=== PATIENT | female | born 1955 | race Caucasian/White ===

== ENCOUNTER 2017-09-22 13:35 | Outpatient (CLI) | payer BC ==
[2017-09-22] MEDS ORDERED: ISOVUE-370 76%-LOCM 1 ML ONE (15:52)
== END 2017-09-22 13:36 | disposition home or self-care (01) ==
LOC: BICCT 13:35
PROVIDERS: ATTEND Internal Medicine Hematology & Oncology
DX: C50.919 Malignant neoplasm of unspecified site of unspecified female breast (principal); I25.10 Atherosclerotic heart disease of native coronary artery without angina pectoris; K21.9 Gastro-esophageal reflux disease without esophagitis
CPT/HCPCS: 71260; 74160

== ENCOUNTER 2017-10-24 09:51 | Outpatient (CLI) | payer BC | END 2017-10-24 09:52 | disposition home or self-care (01) | LOC: BICRAD 09:51 | PROVIDERS: ATTEND Family Medicine | DX: J18.9 Pneumonia, unspecified organism (principal); J98.4 Other disorders of lung | CPT/HCPCS: 71046 ==

== ENCOUNTER 2018-04-13 08:22 | Outpatient (CLI) | payer BC ==
--- NOTE | 2018-04-13 10:24 | BD ---
BONE DENSITOMETRY USING DEXA: HISTORY: Postmenopausal screening for osteoporosis. FINDINGS: Lumbar Spine: BMD (g/cm2) L1 0.832 T-Score: -1.4 Z-Score: 0.1 L2 1.151 T-Score: 1.1 Z-Score: 2.8 L3 1.031 T-Score: -0.5 Z-Score: 1.3 L4 0.993 T-Score: -0.6 Z-Score: 1.2 L1-L4 1.001 T-Score: -0.4 Z-Score: 1.3 Femoral Neck: 0.640 T-Score: -1.9 Z-Score:-0.4 Total Femur: 0.800 T-Score: -1.2 Z-Score: 0.0 There has been interval reduction of 1.7% in the BMD of the lumbar spine and a reduction of 5.9% of t he BMD of the proximal femur since 01/07/2017. The 10-year fracture risk for a major osteoporotic fracture is 9% and for a hip fracture is 1.2%. Impression: Osteopenia. POS: [facility]
== END 2018-04-13 08:23 | disposition home or self-care (01) ==
LOC: BICMAMMO 08:22
PROVIDERS: ATTEND Internal Medicine Hematology & Oncology
DX: C50.812 Malignant neoplasm of overlapping sites of left female breast (principal); M85.89 Other specified disorders of bone density and structure, multiple sites
CPT/HCPCS: 77080

== ENCOUNTER 2018-12-30 13:02 | Outpatient (CLI) | payer BC ==
--- NOTE | 2018-12-30 13:40 | ULT ---
ULTRASOUND OF THE LEFT CHEST WALL: 12/30/18 HISTORY: 63-year-old female with left mastectomy for breast cancer. Patient had redness in the left chest wall . FINDINGS/IMPRESSION: Sonographic evaluation of the left chest wall demonstrates no evidence of mass or fluid collections. There is no evidence of masses. POS: [facility]
== END 2018-12-30 13:03 | disposition home or self-care (01) ==
LOC: BICULT 13:02
PROVIDERS: ATTEND Internal Medicine Hematology & Oncology
DX: C50.812 Malignant neoplasm of overlapping sites of left female breast (principal)

== ENCOUNTER 2019-05-26 10:09 | Outpatient (CLI) | payer BC ==
--- NOTE | 2019-05-26 12:39 | BD ---
DEXA BONE DENSITY STUDY: HISTORY: Postmenopausal. LUMBAR SPINE BMD (g/cm2) T-SCORE L1 0.903 -0.8 L2 1.185 +1.4 L3 1.063 -0.2 L4 1.071 +-.1 TOTAL 1.054 +0.1 LEFT FEMORAL NECK 0.65 -1.7 TOTAL 0.860 -0.7 IMPRESSION: 1. Osteopenia of the left femoral neck. 2. Normal bone mineral density of the lumbar spine. 3. The ten year fracture risk for a major osteoporotic fracture is 8.6% and for a hip fracture is 1.1 %. These fracture probabilities are calculated for an untreated patient. POS: [facility]
== END 2019-05-26 10:10 | disposition home or self-care (01) ==
LOC: BICMAMMO 10:09
PROVIDERS: ATTEND Internal Medicine Hematology & Oncology
DX: M85.88 Other specified disorders of bone density and structure, other site (principal); C50.919 Malignant neoplasm of unspecified site of unspecified female breast; N95.9 Unspecified menopausal and perimenopausal disorder
CPT/HCPCS: 77080

== ENCOUNTER 2019-09-02 11:09 | Outpatient (CLI) | payer BC ==
--- NOTE | 2019-09-02 13:21 | ULT ---
LEFT BREAST ULTRASOUND: HISTORY: Burning in the left chest wall. The patient has had a mastectomy on the left. COMPARISON: 12/30/2018. TECHNIQUE: Multiplanar, aguilera scale, and color Doppler images were obtained in a left chest wall ultrasound. FINDINGS: Normal-appearing fatty tissue is seen. No breast parenchyma is seen. No solid mass or cyst is seen. IMPRESSION: BIRADS category 1 - negative.
== END 2019-09-02 11:10 | disposition home or self-care (01) ==
LOC: BICULT 11:09
PROVIDERS: ATTEND Internal Medicine Hematology & Oncology
DX: C50.919 Malignant neoplasm of unspecified site of unspecified female breast (principal); Z90.11 Acquired absence of right breast and nipple; Z90.12 Acquired absence of left breast and nipple
CPT/HCPCS: 36415; 80053; 82248; 83615; 84100; 84443; 84550; 86300

== ENCOUNTER 2020-07-03 09:57 | Outpatient (CLI) | payer BC, MEDICARE ==
--- NOTE | 2020-07-03 10:46 | BD ---
EXAM: DEXA bone density examination HISTORY: Diagnosis code 174.8 and C50.812; osteoporosis screening COMPARISON: May 26, 2019 and April 13, 2018. Patient's baseline examination was March 23. FINDINGS: L1--bone mineral density 0.979 g/sq cm; T score -0.9. Z score 1.5 L2--bone mineral density 1.250 g/sq cm; T score 2.0; Z score 3.8 L3--bone mineral density 0.894 g/sq cm; T score -1.7; Z score 0.2 L4--bone mineral density 1.062 g/sq cm; T score 0.0, Z score 2.0 Total L1-L4--bone mineral density 1.060 g/sq cm; T score 0.1, Z score 1.9 Left femoral neck--bone mineral density0.643; T score -1.9, Z score -0.3 Total proximal left femur--bone mineral density 0.788; T score -1.3, Z score 0.0 This patient has a 10 year WHO fracture risk of a major osteoporotic fracture of 15% and of a hip fra cture of 2.2%. The patient's bone mineral density has declined 5.9% from the baseline exam dated 03/23/2012 and 8.3% from the most previous examination dated May 26, 2019. IMPRESSION: Based on the WHO criteria, the patient's bone mineral density is consideredOsteopenic. T he patient is at moderate risk for fracture.
== END 2020-07-03 09:58 | disposition home or self-care (01) ==
LOC: BICMAMMO 09:57
PROVIDERS: ATTEND Internal Medicine Hematology & Oncology
DX: Z13.820 Encounter for screening for osteoporosis (principal); C50.812 Malignant neoplasm of overlapping sites of left female breast; T38.6X5A Adverse effect of antigonadotrophins, antiestrogens, antiandrogens, not elsewhere classified, initial encounter; M85.89 Other specified disorders of bone density and structure, multiple sites; Z78.0 Asymptomatic menopausal state
CPT/HCPCS: 77080

== ENCOUNTER 2020-10-19 12:03 | Outpatient (CLI) | payer BC, MEDICARE ==
[2020-10-19 14:34] LABS: #Basophils 0.1 10x3/uL (0.0-0.2); #Eosinphils 0.1 10x3/uL (0.0-0.5); #Monocytes 0.5 10x3/uL (0.0-1.1); #Neutrophils 1.6 10x3/uL (1.5-8.4); %Basophils 2.8 % (0.0-2.0); %Eosinophils 3.1 % (0.0-6.0); %Lymphocytes 33.1 % (18.0-47.0); %Monocytes 14.2 % (0.0-10.0); %Neutrophils 46.5 % (40.0-75.0); Hemoglobin 15.2 g/dL (12.0-15.5); Mean Corpuscular HGB CONC 32.9 g/dL (32.0-36.0); Mean Corpuscular Hemoglobin 31.9 pg (27.0-33.0); Mean Corpuscular Volume 96.9 fl (81.6-98.3); Mean Platelet Volume 10.9 fl (7.4-10.4); Platelet Count 249 10x3/uL (150-450); RBC Distribution Width 13.2 % (11.5-14.5); Red Blood Cell (RBC) Count 4.77 10x6/uL (3.90-5.03); White Blood Cell (WBC) Count 3.5 10x3/uL (3.5-10.5)
[2020-10-19 14:35] LABS: Anion Gap 17 mmol/L (10-20); BUN (Urea Nitrogen) 17 mg/dL (9.8-20.1); Calc. Creatinine Clearance 0 mL/min (70-130); Calcium 9.8 mg/dL (7.8-10.44); Carbon Dioxide 25 mmol/L (23-31); Chloride 107 mmol/L (98-107); Glucose 68 mg/dL (80-115); Sodium 144 mmol/L (136-145)
[2020-10-19 22:03] LABS: SARS-CoV-2 PCR by NAA Not Detected (NotDetected)
== END 2020-10-19 12:04 | disposition home or self-care (01) ==
LOC: LABBT 12:03
PROVIDERS: ATTEND Specialist
DX: Z01.818 Encounter for other preprocedural examination (principal); Z20.822 Contact with and (suspected) exposure to COVID-19; R22.41 Localized swelling, mass and lump, right lower limb
CPT/HCPCS: 80048; 85025; 87635; 93005; 93010; U0003; U0005

== ENCOUNTER 2020-10-24 12:03 | Day surgery (SDC) | payer BC ==
[2020-10-23 13:41] VITALS: BMI 21.1
[2020-10-24] MEDS ORDERED: Acetaminophen 500 MG TAB ONE (12:24)
[2020-10-24] MEDS ORDERED: Ketorolac Tromethamine 30 MG/ML VIAL ONE (12:24)
[2020-10-24] MEDS ORDERED: Fentanyl 100 MCG/2 ML VIAL ONE (15:08)
[2020-10-24] MEDS ORDERED: Lidocaine 1% w/Epinephrine 1:100K 20 ML VIAL ONE (15:28)
[2020-10-24] MEDS ORDERED: Bupivacaine PF 0.5% 30 ML VIAL ONE (15:28)
[2020-10-24] MEDS ORDERED: Metoclopramide HCl 10 MG/2 ML VIAL ONE ×2 (15:32→15:40)
[2020-10-24] MEDS ORDERED: Famotidine/PF 20 mg/2ml Vial ONE (15:32)
[2020-10-24] MEDS ORDERED: Scopolamine 1.5 mg/72 hour Patch ONE (15:32)
[2020-10-24] MEDS ORDERED: PROPOFOL 200 MG/20 ML VIAL ONE (15:40)
[2020-10-24] MEDS ORDERED: Ondansetron PF 4 MG/2 ML Vial ONE (15:40)
[2020-10-24] MEDS ORDERED: Lidocaine 1% PF 5 ML VIAL ONE (15:40)
[2020-10-24] MEDS ORDERED: Rocuronium Bromide 10 MG/ML (10ML VIAL) ONE (15:40)
[2020-10-24] MEDS ORDERED: Dexamethasone 20 MG/5 ML VIAL ONE (15:40)
[2020-10-24] MEDS ORDERED: Bacitracin Zinc Ointment 30 gm TUBE ONE (16:22)
== END 2020-10-24 18:10 | disposition home or self-care (01) ==
LOC: SDC 12:03
PROVIDERS: ATTEND Specialist
PROC: 0JBL0ZZ Excision of Right Upper Leg Subcutaneous Tissue and Fascia, Open Approach (ICD-10-PCS; principal; 2020-10-24)
DX: M79.89 Other specified soft tissue disorders (principal); E03.9 Hypothyroidism, unspecified; M81.0 Age-related osteoporosis without current pathological fracture; I10 Essential (primary) hypertension; Z85.3 Personal history of malignant neoplasm of breast; Z79.811 Long term (current) use of aromatase inhibitors; Z79.899 Other long term (current) drug therapy
CPT/HCPCS: 88304; J0690; J1100; J1885; J2405; J2704; J2765; J3010; S0020; S0028

== ENCOUNTER 2022-03-01 08:38 | Outpatient (CLI) | payer MEDICARE, BC | END 2022-03-01 08:39 | disposition home or self-care (01) | LOC: BICMAMMO 08:38 | PROVIDERS: ATTEND Internal Medicine Hematology & Oncology | DX: M85.851 Other specified disorders of bone density and structure, right thigh (principal); M85.852 Other specified disorders of bone density and structure, left thigh; Z85.3 Personal history of malignant neoplasm of breast | CPT/HCPCS: 77080 ==

== ENCOUNTER 2022-03-15 10:52 | Outpatient (CLI) | payer MEDICARE, BC | END 2022-03-15 10:53 | disposition home or self-care (01) | LOC: BICMRI 10:52 | PROVIDERS: ATTEND Nurse Practitioner Family | DX: M47.26 Other spondylosis with radiculopathy, lumbar region (principal); M41.9 Scoliosis, unspecified; M48.061 Spinal stenosis, lumbar region without neurogenic claudication; M48.07 Spinal stenosis, lumbosacral region | CPT/HCPCS: 72120; 72148 ==

== ENCOUNTER 2023-07-04 14:21 | Outpatient (CLI) | payer BC, MEDICARE | END 2023-07-04 14:22 | disposition home or self-care (01) | LOC: BICMAMMO 14:21 | PROVIDERS: ATTEND Internal Medicine Hematology & Oncology | DX: M85.89 Other specified disorders of bone density and structure, multiple sites (principal) | CPT/HCPCS: 77080 ==